=== PATIENT | female | born 1945 | race Caucasian/White ===

== ENCOUNTER 2017-01-16 09:31 | Emergency (ER) | payer MEDICARE, BC ==
--- NOTE | 2017-01-16 09:54 | EDM.PDOC ---
ED HPI GENERAL MEDICAL PROBLEM - General Chief Complaint: Cardiovascular Problem Stated Complaint: [id number] PULSE IRREGULAR SHAKING Time Seen by Provider: 01/16/17 09:46 Source of Information: Reports: Patient History Limitations: Reports: No Limitations - History of Present Illness INITIAL COMMENTS - FREE TEXT/NARRATIVE: 71 yo white female c/o heart palpitations for last 10 days after changing medication from Prilosec to Pepcid. Pt. states it occurs 2-3 times each day for 30 mins. w/o chest pain. Onset Date: 01/06/17 Onset Time: 13:00 Duration: Day(s): Location: Reports: Chest Severity: Moderate Improves with: Reports: None Worsens with: Reports: None Context: Reports: Other (medication change) Associated Symptoms: Reports: No Other Symptoms - Related Data Allergies Allergy/AdvReac Type Severity Reaction Status Date / Time No Known Drug Allergies Allergy Cannot Verified 01/16/17 09:40 Remember Home Meds: Home Meds Famotidine [Pepcid] 20 mg PO BID 01/16/17 [History] ED ROS GENERAL - Review of Systems Review Of Systems: See Below Constitutional: Reports: No Symptoms HEENT: Reports: No Symptoms Respiratory: Reports: No Symptoms Cardiovascular: Reports: Palpitations Endocrine: Reports: No Symptoms GI/Abdominal: Reports: No Symptoms : Reports: No Symptoms Musculoskeletal: Reports: No Symptoms Skin: Reports: No Symptoms Neurological: Reports: No Symptoms Psychiatric: Reports: No Symptoms Hematologic/Lymphatic: Reports: No Symptoms Immunologic: Reports: No Symptoms ED EXAM, GENERAL - Physical Exam Exam: See Below Exam Limited By: No Limitations General Appearance: Alert, WD/WN, No Apparent Distress Eye Exam: Bilateral Eye: PERRL Ears: Normal External Exam Nose: Normal Inspection Throat/Mouth: Normal Inspection Head: Atraumatic Neck: Normal Inspection Respiratory/Chest: No Respiratory Distress Cardiovascular: Normal Peripheral Pulses, Regular Rate, Rhythm Peripheral Pulses: 2+: Radial (L), Radial (R) Back Exam: Normal Inspection Extremities: Normal Inspection, Normal Range of Motion Neurological: Alert, Oriented, CN II-XII Intact Psychiatric: Normal Affect Skin Exam: Warm, Dry, Intact Lymphatic: No Adenopathy Course - Vital Signs Last Recorded V/S: Last Vital Signs Temp 37.0 C 01/16/17 09:44 Pulse 76 01/16/17 09:44 Resp BP 154/76 H 01/16/17 09:44 Pulse Ox 100 01/16/17 09:44 - Orders/Labs/Meds Orders: Active Orders 24 hr Category Date Time Status EKG Documentation Completion [RC] STAT Care 01/16/17 09:48 Active Sodium Chloride 0.9% [Normal Saline] 1,000 ml Med 01/16/17 10:00 Active IV ASDIRECTED Medication Orders Sodium Chloride (Normal Saline) 1,000 mls @ 125 mls/hr IV ASDIRECTED NERI Last Admin: 01/16/17 10:03 Dose: 125 mls/hr Labs: Laboratory Tests 01/16/17 01/16/17 01/16/17 Range/Units 09:58 09:58 09:58 WBC 8.3 (5.0-10.0) 10^3/uL RBC 4.18 L (4.2-5.4) 10^6/uL Hgb 13.2 (12.0-16.0) g/dL Hct 40.3 (37.0-47.0) % MCV 96.4 (80-100) fL MCH 31.6 (27.0-34.0) pg MCHC 32.8 L (33.0-35.0) g/dL Plt Count 224 (150-450) 10^3/uL Neut % (Auto) 60.7 (42.2-75.2) % Lymph % (Auto) 25.7 (20.5-50.1) % [place] % (Auto) 10.7 H (2-8) % Eos % (Auto) 2.5 (1.0-3.0) % Baso % (Auto) 0.4 (0.0-1.0) % D-Dimer, Quantitative < 100 (0-400) ng/mL Sodium 137 (135-145) mmol/L Potassium 3.8 (3.6-5.0) mmol/L Chloride 98 L (101-111) mmol/L Carbon Dioxide 28.0 (21.0-31.0) mmol/L Anion Gap 14.8 BUN 24 H (7-18) mg/dL Creatinine 0.9 (0.6-1.3) mg/dL Est Cr Clr Drug Dosing 43.09 mL/min Estimated GFR (MDRD) > 60 BUN/Creatinine Ratio 26.66 Glucose 102 (74-105) mg/dL Calcium 9.4 (8.4-10.2) mg/dl Magnesium (1.8-2.5) mg/dL Total Bilirubin 0.7 (0.2-1.0) mg/dL AST 31 (10-42) IU/L ALT 23 (10-60) IU/L Alkaline Phosphatase 49 (42-121) IU/L Troponin I 0.02 (0.00-0.02) ng/ml Total Protein 6.5 L (6.7-8.2) g/dl Albumin 4.0 (3.2-5.5) g/dl Globulin 2.5 Albumin/Globulin Ratio 1.60 TSH, Ultra Sensitive (0.45-5.33) uIu/mL 01/16/17 01/16/17 Range/Units 09:58 09:58 WBC (5.0-10.0) 10^3/uL RBC (4.2-5.4) 10^6/uL Hgb (12.0-16.0) g/dL Hct (37.0-47.0) % MCV (80-100) fL MCH (27.0-34.0) pg MCHC (33.0-35.0) g/dL Plt Count (150-450) 10^3/uL Neut % (Auto) (42.2-75.2) % Lymph % (Auto) (20.5-50.1) % [place] % (Auto) (2-8) % Eos % (Auto) (1.0-3.0) % Baso % (Auto) (0.0-1.0) % D-Dimer, Quantitative (0-400) ng/mL Sodium (135-145) mmol/L Potassium (3.6-5.0) mmol/L Chloride (101-111) mmol/L Carbon Dioxide (21.0-31.0) mmol/L Anion Gap BUN (7-18) mg/dL Creatinine (0.6-1.3) mg/dL Est Cr Clr Drug Dosing mL/min Estimated GFR (MDRD) BUN/Creatinine Ratio Glucose (74-105) mg/dL Calcium (8.4-10.2) mg/dl Magnesium 2.0 (1.8-2.5) mg/dL Total Bilirubin (0.2-1.0) mg/dL AST (10-42) IU/L ALT (10-60) IU/L Alkaline Phosphatase (42-121) IU/L Troponin I (0.00-0.02) ng/ml Total Protein (6.7-8.2) g/dl Albumin (3.2-5.5) g/dl Globulin Albumin/Globulin Ratio TSH, Ultra Sensitive 4.80 (0.45-5.33) uIu/mL Meds: Medications Generic Name Dose Route Start Last Admin Trade Name Freq PRN Reason Stop Dose Admin Sodium Chloride 1,000 mls @ 125 mls/hr 01/16/17 10:00 01/16/17 10:03 Normal Saline IV 125 mls/hr ASDIRECTED NERI Administration Departure - Departure Time of Disposition: 10:52 Disposition: Home, Self-Care 01 Condition: Good Clinical Impression: Palpitations Forms: ED Department Discharge Additional Instructions: Stop taking PEPCID F/U w/ PCP for re-evaluation - My Orders Last 24 Hours: My Active Orders 01/16/17 09:48 EKG Documentation Completion [RC] STAT 01/16/17 10:00 Sodium Chloride 0.9% [Normal Saline] 1,000 ml IV ASDIRECTED - Assessment/Plan Last 24 Hours: My Active Orders 01/16/17 09:48 EKG Documentation Completion [RC] STAT 01/16/17 10:00 Sodium Chloride 0.9% [Normal Saline] 1,000 ml IV ASDIRECTED
[2017-01-16] MEDS ORDERED: Sodium Chloride 0.9% 1,000 ML IV SCH (10:00)
[2017-01-16 10:32] LABS: CHLORIDE,CL 98 mmol/L (101-111); SODIUM,NA 137 mmol/L (135-145)
--- NOTE | 2017-01-16 10:36 | CR ---
Clinical history: 71-year-old female with heart "palpitations". Interpretation: No acute cardiopulmonary abnormality. Normal cardiac silhouette without cephalization of vascular flow, signs of alveolar edema or dependen t pleural effusion. Subtle dorsolumbar scoliosis. Asymmetric mild apical pleural scarring on the right. No lung mass, hilar lymphadenopathy or focal lobar pneumonia. No atelectasis/collapse. No pneumothora x.
--- NOTE | 2017-01-17 09:33 | EKG ---
01/16/2017 - ZAFAR PATRICK I reviewed the EKG and agree with the machine's reading. [facility] /[id number]
== END 2017-01-16 11:36 | disposition home or self-care (01) ==
LOC: DL.ED 09:31
DX: R00.2 Palpitations (principal)
CPT/HCPCS: 36415; 71020; 80053; 83735; 84443; 84484; 85025; 85379; 93005; 93010; 96360; 99285; J7030

== ENCOUNTER 2020-08-03 14:54 | Emergency (ER) | payer MEDICARE, BC ==
--- NOTE | 2020-08-03 15:29 | EDM.PDOC ---
ED HPI GENERAL MEDICAL PROBLEM - General Chief Complaint: Respiratory Problem Stated Complaint: DIZZINESS / SHORTNESS OF BREATH Time Seen by Provider: 08/03/20 15:45 Source of Information: Reports: Patient History Limitations: Reports: No Limitations - History of Present Illness INITIAL COMMENTS - FREE TEXT/NARRATIVE: This 75 yo female patient was brought to the ED by her friend due to an episode of increased shortness of breath. The patient reports she was running up stairs at about 1330 today when she noticed that she was having increased shortness of breath. The patient reports her shortness of breath lasted for a while, but eventually resolved. The patient reports she did have a change in her Parkinson's medications about 1 week ago and has been having increased dif ficulties sleeping over the past 3 nights. The patient reports she has been waking up in the middle of the night, but she is not too sure if she is waking up due to PAC (which she has a history of) or due to the tremors from Parkinson's. Onset Date: 08/03/20 Onset Time: 13:30 Duration: Resolved Prior to Arrival Location: Reports: Generalized Quality: Reports: Other Severity: Moderate Improves with: Reports: None Worsens with: Reports: None Context: Reports: Other Associated Symptoms: Reports: Shortness of Breath - Related Data Allergies Allergy/AdvReac Type Severity Reaction Status Date / Time No Known Drug Allergies Allergy Cannot Verified 01/16/17 09:40 Remember Home Meds: Home Meds Famotidine [Pepcid] 20 mg PO BID 01/16/17 [History] Past Medical History Gastrointestinal History: Reports: GERD Musculoskeletal History: Reports: Other (See Below) Other Musculoskeletal History: Osteopenia Neurological History: Reports: Parkinson's - Past Surgical History GI Surgical History: Reports: Appendectomy Female Surgical History: Reports: Breast Biopsy, Hysterectomy, Oophorectomy Social & Family History - Family History Family Medical History: No Pertinent Family History - Caffeine Use Caffeine Use: Reports: Coffee ED ROS GENERAL - Review of Systems Review Of Systems: Comprehensive ROS is negative, except as noted in HPI. ED EXAM, GENERAL - Physical Exam Exam: See Below Exam Limited By: No Limitations General Appearance: Alert, WD/WN, Mild Distress Eye Exam: Bilateral Eye: EOMI, Normal Inspection, PERRL Ears: Normal External Exam, Normal Canal, Hearing Grossly Normal, Normal TMs Nose: Normal Inspection, Normal Mucosa, No Blood Throat/Mouth: Normal Inspection, Normal Lips, Normal Teeth, Normal Gums, Normal Oropharynx, Normal Voice, No Airway Compromise Head: Atraumatic, Normocephalic Neck: Normal Inspection, Supple, Non-Tender, Full Range of Motion Respiratory/Chest: No Respiratory Distress, Lungs Clear, Normal Breath Sounds, No Accessory Muscle Use, Chest Non-Tender Cardiovascular: No Edema, No Gallop, No JVD, No Murmur, No Rub, Extra Beats GI/Abdominal: Normal Bowel Sounds, Soft, Non-Tender, No Organomegaly, No Distention, No Abnormal Bruit, No Mass (Female) Exam: Deferred Rectal (Female) Exam: Deferred Back Exam: Normal Inspection, Full Range of Motion, NT Extremities: Normal Inspection, Normal Range of Motion, Non-Tender, Normal Capillary Refill, No Pedal Edema Neurological: Alert, Oriented, CN II-XII Intact, Normal Cognition, Normal Gait, Normal Reflexes, No Motor/Sensory Deficits Psychiatric: Normal Affect, Normal Mood Skin Exam: Warm, Dry, Intact, Normal Color, No Rash Lymphatic: No Adenopathy #1 Interpretation EKG Date: 08/03/20 Time: 15:19 Rhythm: NSR Rate (Beats/Min): 61 (intermittent PAC) [place]: Normal P-Wave: Present QRS: Normal ST-T: Normal QT: Normal Comparison: NA - No Prior EKG Course - Vital Signs Last Recorded V/S: Last Vital Signs Temp 36.7 C 08/03/20 15:17 Pulse 78 08/03/20 15:17 Resp 18 08/03/20 15:17 BP 127/72 08/03/20 15:17 Pulse Ox 99 08/03/20 15:17 - Orders/Labs/Meds Orders: Active Orders 24 hr Category Date Time Status EKG Documentation Completion [RC] STAT Care 08/03/20 15:13 Active Labs: Laboratory Tests 08/03/20 08/03/20 08/03/20 Range/Units 15:20 15:20 15:20 WBC 4.6 L (5.0-10.0) 10^3/uL RBC 4.07 L (4.2-5.4) 10^6/uL Hgb 12.9 (12.0-16.0) g/dL Hct 39.9 (37.0-47.0) % MCV 98.0 (80-100) fL MCH 31.7 (27.0-34.0) pg MCHC 32.3 L (33.0-35.0) g/dL Plt Count 202 (150-450) 10^3/uL Neut % (Auto) 71.9 (42.2-75.2) % Lymph % (Auto) 17.1 L (20.5-50.1) % [place] % (Auto) 10.6 H (2-8) % Eos % (Auto) 0.2 L (1.0-3.0) % Baso % (Auto) 0.2 (0.0-1.0) % Sodium 139 (136-145) mmol/L Potassium 4.0 (3.5-5.1) mmol/L Chloride 102 (98-107) mmol/L Carbon Dioxide 32 (21-32) mmol/L Anion Gap 9.0 (7-13) mEq/L BUN 19 H (7-18) mg/dL Creatinine 0.97 (0.55-1.02) mg/dL Est Cr Clr Drug Dosing 34.47 mL/min Estimated GFR (MDRD) 56 BUN/Creatinine Ratio 19.6 (No establ ref range) Glucose 91 (70-99) mg/dL Lactic Acid 0.7 (0.4-2.0) mmol/L Calcium 8.7 (8.5-10.1) mg/dL Total Bilirubin 0.5 (0.2-1.0) mg/dL AST 24 (15-37) U/L ALT 12 L (14-59) U/L Alkaline Phosphatase 59 (46-116) U/L Troponin I < 0.017 (0.000-0.056) ng/mL Total Protein 6.5 (6.4-8.2) g/dL Albumin 3.6 (3.4-5.0) g/dL Globulin 2.9 Albumin/Globulin Ratio 1.2 Departure - Departure Time of Disposition: 17:06 Disposition: Home, Self-Care 01 Condition: Fair Clinical Impression: Palpitations - Discharge Information *PRESCRIPTION DRUG MONITORING PROGRAM REVIEWED*: Not Applicable *COPY OF PRESCRIPTION DRUG MONITORING REPORT IN PATIENT LATRELL: Not Applicable Forms: ED Department Discharge Care Plan Goals: The patient was advised of the examination, lab, EKG and x-ray results during the visit. The patient was encouraged to continue to monitor her symptoms. If the patient has any additional symptoms or concerns, the patient should either return to the emergency department or visit her primary care facility. Sepsis Event Note (ED) - Focused Exam Vital Signs: Vital Signs Temp Pulse Resp BP Pulse Ox 08/03/20 15:17 36.7 C 78 18 127/72 99 - My Orders Last 24 Hours: My Active Orders 08/03/20 15:13 EKG Documentation Completion [RC] STAT - Assessment/Plan Last 24 Hours: My Active Orders 08/03/20 15:13 EKG Documentation Completion [RC] STAT
[2020-08-03 15:47] LABS: CHLORIDE,CL 102 mmol/L (98-107); SODIUM,NA 139 mmol/L (136-145)
--- NOTE | 2020-08-03 17:02 | CR ---
EXAMINATION: Chest 1V Frontal SEX: Female AGE: 75 years CLINICAL HISTORY: 75-year-old female complaining of shortness of breath. Comparison CXR 16 January 2017. Interpretation: Generalized air trapping. Symmetrically prominent nipple shadows. External air sampling and monitoring leads. No heart failure i.e. no cardiomegaly, pulmonary vascular congestion, alveolar edema or dependent pleural effusion. No new lung mass or hilar lymphadenopathy since December 2016. No alveolar infiltrate, atelectasis/collapse, or peripheral "groundglass" interstitial lung densities. No pneumothorax or pneumomediastinum. Midline tracheal airway unremarkable. CONCLUSION: No acute cardiopulmonary abnormality.
== END 2020-08-03 17:25 | disposition home or self-care (01) ==
LOC: DL.ED 14:54
DX: R00.2 Palpitations (principal); K21.9 Gastro-esophageal reflux disease without esophagitis; Z79.899 Other long term (current) drug therapy
CPT/HCPCS: 36415; 71045; 80053; 83605; 84484; 85025; 93005; 93010; 99284; 99285-25

== ENCOUNTER 2020-08-10 13:28 | Emergency (ER) | payer MEDICARE, BC ==
--- NOTE | 2020-08-10 14:18 | EDM.PDOC ---
ED HPI GENERAL MEDICAL PROBLEM - General Stated Complaint: SHORTNESS OF BREATH / SHAKEY Time Seen by Provider: 08/10/20 13:55 Source of Information: Reports: Patient, Old Records, RN, RN Notes Reviewed History Limitations: Reports: No Limitations - History of Present Illness INITIAL COMMENTS - FREE TEXT/NARRATIVE: Priyanka is a 75 yo female who presents to the ED via personal vehicle with complaints of shortness of breath and palpitations. The patient reports she was evaluated in this facility one week ago for feelings of "...heart fluttering" and was subsequently diagnosed with frequent PACs. She has been placed on a Ziopatch and is due to meet with MILADIS Mcarthur at [facility] in [facility] on August 21. She presents today stating she experienced two bouts of shortness of breath and grew concerned the arrhythmia was straining her heart. She denies recent illness, fever, shaking chills, chest pain, chest pressure, cough, sore throat, vomiting, or diarrhea. She does attest to restless sleep over the past few nights and intermittent nausea at night. She denies tobacco, alcohol, or recreational drug use. - Related Data Allergies Allergy/AdvReac Type Severity Reaction Status Date / Time No Known Drug Allergies Allergy Cannot Verified 08/10/20 13:45 Remember Home Meds: Home Meds Famotidine [Pepcid] 20 mg PO BID 01/16/17 [History] Past Medical History HEENT History: Reports: Impaired Vision Cardiovascular History: Reports: Other (See Below) Other Cardiovascular History: PACs Respiratory History: Reports: None Gastrointestinal History: Reports: GERD [employer] History: Reports: None Musculoskeletal History: Reports: Other (See Below) Other Musculoskeletal History: Osteopenia Neurological History: Reports: Parkinson's Psychiatric History: Reports: None Endocrine/Metabolic History: Reports: None Hematologic History: Reports: None Immunologic History: Reports: None Oncologic (Cancer) History: Reports: None Dermatologic History: Reports: None - Infectious Disease History Infectious Disease History: Reports: None - Past Surgical History Head Surgeries/Procedures: Reports: None GI Surgical History: Reports: Appendectomy Female Surgical History: Reports: Breast Biopsy, Hysterectomy, Oophorectomy Social & Family History - Family History Family Medical History: No Pertinent Family History - Tobacco Use Tobacco Use Status *Q: Never Tobacco User - Caffeine Use Caffeine Use: Reports: None - Recreational Drug Use Recreational Drug Use: No ED ROS GENERAL - Review of Systems Review Of Systems: Comprehensive ROS is negative, except as noted in HPI. ED EXAM, GENERAL - Physical Exam Exam: See Below Exam Limited By: No Limitations General Appearance: Alert, No Apparent Distress Ears: Normal External Exam, Normal Canal, Hearing Grossly Normal, Normal TMs Ear Exam: Bilateral Ear: Auricle Normal, Canal Normal, TM normal Nose: Normal Inspection, Normal Mucosa, No Blood Throat/Mouth: Normal Lips, Normal Teeth, Normal Gums, Normal Voice, No Airway Compromise. No: Normal Oropharynx (Dry mucous membranes) Head: Atraumatic, Normocephalic Neck: Normal Inspection, Supple, Non-Tender, Full Range of Motion. No: Lymphadenopathy (L), Lymphadenopathy (R) Respiratory/Chest: No Respiratory Distress, Lungs Clear, Normal Breath Sounds, No Accessory Muscle Use, Chest Non-Tender Cardiovascular: Regular Rate, Rhythm, No Edema, No Gallop, No JVD, No Murmur, No Rub, Extra Beats (Frequent PACs) Peripheral Pulses: 2+: Radial (L), Radial (R) GI/Abdominal: Normal Bowel Sounds, Soft, Non-Tender, No Distention, No Mass, Pelvis Stable (Female) Exam: Deferred Rectal (Female) Exam: Deferred Back Exam: Normal Inspection, Full Range of Motion Extremities: Normal Inspection, Normal Range of Motion, Non-Tender, No Pedal Edema, Normal Capillary Refill Neurological: Alert, Oriented, CN II-XII Intact, Normal Cognition, Normal Gait, No Motor/Sensory Deficits Psychiatric: Normal Affect, Normal Mood Skin Exam: Warm, Dry, Intact, Normal Color, No Rash. No: Ecchymosis, Erythema, Jaundice, Mottled, Pallor, Petechiae #1 Interpretation EKG Date: 08/10/20 Time: 14:34 Rhythm: NSR (with PACs) Rate (Beats/Min): 78 [place]: Normal P-Wave: Present QRS: Normal ST-T: Normal QT: Normal [place]/PQ Interval: 0.168 Comparison: No Change EKG Interpretation Comments: NSR with PACs; No evidence of acute myocardial ischemia Course - Vital Signs Last Recorded V/S: Last Vital Signs Temp 98.1 F 08/10/20 13:46 Pulse 76 08/10/20 13:46 Resp 18 08/10/20 13:46 BP 99/72 08/10/20 13:46 Pulse Ox 99 08/10/20 13:46 - Orders/Labs/Meds Orders: Active Orders 24 hr Category Date Time Status EKG Documentation Completion [RC] STAT Care 08/10/20 14:18 Active Labs: Laboratory Tests 08/10/20 08/10/20 08/10/20 Range/Units 14:10 14:27 14:27 WBC 5.5 (5.0-10.0) 10^3/uL RBC 4.33 (4.2-5.4) 10^6/uL Hgb 13.8 (12.0-16.0) g/dL Hct 42.5 (37.0-47.0) % MCV 98.2 (80-100) fL MCH 31.9 (27.0-34.0) pg MCHC 32.5 L (33.0-35.0) g/dL Plt Count 224 (150-450) 10^3/uL Neut % (Auto) 75.3 H (42.2-75.2) % Lymph % (Auto) 15.8 L (20.5-50.1) % [place] % (Auto) 8.3 H (2-8) % Eos % (Auto) 0.4 L (1.0-3.0) % Baso % (Auto) 0.2 (0.0-1.0) % Sodium 140 (136-145) mmol/L Potassium 4.2 (3.5-5.1) mmol/L Chloride 103 (98-107) mmol/L Carbon Dioxide 30 (21-32) mmol/L Anion Gap 11.2 (7-13) mEq/L BUN 24 H (7-18) mg/dL Creatinine 0.88 (0.55-1.02) mg/dL Est Cr Clr Drug Dosing 36.69 mL/min Estimated GFR (MDRD) > 60 BUN/Creatinine Ratio 27.3 (No establ ref range) Glucose 136 H (70-99) mg/dL Calcium 9.0 (8.5-10.1) mg/dL Total Bilirubin 0.4 (0.2-1.0) mg/dL AST 22 (15-37) U/L ALT 26 (14-59) U/L Alkaline Phosphatase 67 (46-116) U/L Troponin I < 0.017 (0.000-0.056) ng/mL Total Protein 6.5 (6.4-8.2) g/dL Albumin 3.5 (3.4-5.0) g/dL Globulin 3.0 Albumin/Globulin Ratio 1.2 Urine Color Yellow (YELLOW) Urine Appearance Slightly cloudy (CLEAR) Urine pH 7.0 (5.0-9.0) Ur Specific [place] 1.015 (1.005-1.030) Urine Protein Negative (NEGATIVE) Urine Glucose (UA) Negative (NEGATIVE) Urine Ketones Negative (NEGATIVE) Urine Occult Blood Trace-intact H (NEGATIVE) Urine Nitrite Negative (NEGATIVE) Urine Bilirubin Negative (NEGATIVE) Urine Urobilinogen 0.2 (0.2-1.0) mg/dL Ur Leukocyte Esterase Negative (NEGATIVE) Urine RBC 0-5 /HPF Urine WBC 0-5 (0-5/HPF) /HPF Ur Epithelial Cells Few (NOT SEEN) /HPF - Re-Assessments/Exams Free Text/Narrative Re-Assessment/Exam: 08/10/20 EKG reveals NSR with PACs, no evidence of acute myocardial ischemia. CBC unremarkable for acute processes. Kidney function, liver function, and electrolytes appropriate via CMP. Troponin WNL. CXR not performed as Xray from 08/03/20 unremarkable and patient denies fever, shaking chills, chest pain, or persistent shortness of breath. Discussed findings of examination and lab work with patient. Discussed following up with EP regarding today's visit; reiterated type of arrhythmia which is not causing strain on her heart or organ systems. Patient verbalized understanding and agreement with the plan of care. Departure - Departure Time of Disposition: 15:21 Disposition: Home, Self-Care 01 Condition: Good Clinical Impression: Premature atrial beat, Shortness of breath, Fluttering sensation of heart Instructions: Premature Atrial Contraction, Palpitations, [id number] Additional Instructions: 1.) Keep previously scheduled appointment with Dr. Cotter; you may follow up with his office regarding today's visit for further guidance. 2.) Drink plenty of water to stay hydrated. 3.) You may try an [id number] sleep aid, or increase or melatonin, to assist with sleep at night while you are waiting for this upcoming appointment. 4.) Return to the emergency department with any chest pain, chest pressure, or persistent shortness of breath that does not alleviate. Sepsis Event Note (ED) - Evaluation Sepsis Screening Result: No Definite Risk - Focused Exam Vital Signs: Vital Signs Temp Pulse Resp BP Pulse Ox 08/10/20 13:46 98.1 F 76 18 99/72 99 - My Orders Last 24 Hours: My Active Orders 08/10/20 14:18 EKG Documentation Completion [RC] STAT - Assessment/Plan Last 24 Hours: My Active Orders 08/10/20 14:18 EKG Documentation Completion [RC] STAT
[2020-08-10 14:56] LABS: ANION GAP 11.2 mEq/L (7-13); CHLORIDE,CL 103 mmol/L (98-107); SODIUM,NA 140 mmol/L (136-145)
== END 2020-08-10 15:41 | disposition home or self-care (01) ==
LOC: DL.ED 13:28
DX: I48.92 Unspecified atrial flutter (principal); I49.1 Atrial premature depolarization
CPT/HCPCS: 36415; 80053; 81001; 84484; 85025; 93010; 99284; 99285-25

== ENCOUNTER 2020-09-09 12:26 | Emergency (ER) | payer MEDICARE, BC ==
[2020-09-09] MEDS ORDERED: Lidocaine 1% 30 ML SDV INJECT ONE (12:55)
[2020-09-09] MEDS ORDERED: Diphtheria,Pertussis(Acell),Tetanus Vaccine 0.5 ML Syringe IM ONE (12:55)
--- NOTE | 2020-09-09 12:55 | EDM.PDOC ---
ED HPI GENERAL MEDICAL PROBLEM - General Chief Complaint: ENT Problem Stated Complaint: SENT FROM [facility] Time Seen by Provider: 09/09/20 12:50 Source of Information: Reports: Patient History Limitations: Reports: No Limitations - History of Present Illness INITIAL COMMENTS - FREE TEXT/NARRATIVE: Patient [facility] evaluation of a laceration to the right ear and scalp. This morning the patient was working outside when she tripped and fell landing on her ground striking her head on the corner of a gate keeper stone. She did not get knocked out. She sustained a laceration to her right ear as well as her scalp. She went to the clinic to be evaluated and she was sent to the ER for repair of her lacerations. Her tetanus immunization is up-to-date. She denies any headache visual acuity changes nausea diplopia or neck pain. She has no paresthesias of her upper or lower extremities. No change in functionality of her upper or lower extremities. This was a mechanical fall. She was not weak dizzy lightheaded prior to her fall. She sustained no other injuries other than to her right ear and scalp. She is on aspirin daily but she is not on any anticoagulation. She does have a history of Parkinson's and is not uncommon for her to fall. 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 Musculoskeletal History: Reports: Other (See Below) Other Musculoskeletal History: Osteopenia Neurological History: Reports: Parkinson's Psychiatric History: Reports: None Endocrine/Metabolic History: Reports: None Hematologic History: Reports: None Immunologic History: Reports: None Oncologic (Cancer) History: Reports: None Dermatologic History: Reports: None - Infectious Disease History Infectious Disease History: Reports: None - Past Surgical History Head Surgeries/Procedures: Reports: None GI Surgical History: Reports: Appendectomy Female Surgical History: Reports: Breast Biopsy, Hysterectomy, Oophorectomy Social & Family History - Family History Family Medical History: No Pertinent Family History - Caffeine Use Caffeine Use: Reports: None ED ROS ENT - Review of Systems Review Of Systems: Comprehensive ROS is negative, except as noted in HPI. ED EXAM, ENT - Physical Exam Exam: See Below Exam Limited By: No Limitations General Appearance: Alert, WD/WN, No Apparent Distress Eye Exam: Bilateral Eye: EOMI, Normal Inspection, PERRL Ears: Normal Canal, Normal TMs. No: Normal External Exam (On the right posterior superior aspect of the right pinna there is a 3 cm laceration top to bottom that does not include the cartilage. The cartilage does not appear to be injured. On the anterior aspect of the same area of the pinna there is a very small superficial laceration. Not into cartilag) Nose: Normal Inspection, Normal Mucousa Mouth/Throat: Normal Inspection, Normal Gums, Normal Teeth Head: Normocephalic, Scalp Lacerations (Over the right mastoid process there is a 3 cm superficial lacerations. There is no bony deformity crepitus subcutaneous emphysema swelling or hematoma. Rest of the scalp is atraumatic) Neck: Normal Inspection, Supple, Non-Tender. No: Tender Lateral, Tender Midline Respiratory/Chest: No Respiratory Distress, Lungs Clear, Normal Breath Sounds, No Accessory Muscle Use, Chest Non-Tender Cardiovascular: Normal Peripheral Pulses, Regular Rate, Rhythm GI/Abdominal: Normal Bowel Sounds, Soft, Non-Tender (Female) Exam: Deferred Rectal (Female) Exam: Deferred Back: Normal Inspection, Full Range of Motion Extremities: Normal Inspection, Normal Range of Motion, No Pedal Edema, Normal Capillary Refill Neurological: Alert, Oriented, CN II-XII Intact, Normal Cognition, Normal Gait, Normal Reflexes, No Motor/Sensory Deficits ED ENT PROCEDURES - Laceration/Wound Repair Right Posterior Ear Lac/wound length in cm: 3.5 Appearance: Subcutaneous, Linear, Clean Distal NVT: Neuro & Vascular Intact Anesthetic Type: Local Local Anesthesia - Lidocaine (Xylocaine): 1% Plain Local Anesthesia - Bupivicaine (Marcaine): 0.5% Plain Local Anesthetic Volume: 3cc Skin Prep: Chlorhexidine (Hibiciens), Saline Saline irrigation (cc's): 50 Exploration/Debridement/Repair: Wound Explored, In a Bloodless Field, Explored to Base Suture Size: 5-0 # of Sutures: 1 Suture Type: Running Sterile Dressing Applied: Nurse Tetanus Status Addressed: Yes Complications: None Right Lateral Other Lac/wound length in cm: 3 Appearance: Subcutaneous, Linear Distal NVT: Neuro & Vascular Intact Anesthetic Type: Local Local Anesthesia - Lidocaine (Xylocaine): 1% Plain Local Anesthesia - Bupivicaine (Marcaine): 0.5% Plain Local Anesthetic Volume: 3cc Skin Prep: Chlorhexidine (Hibiciens), Saline Exploration/Debridement/Repair: Wound Explored, In a Bloodless Field, Explored to Base Suture Size: 5-0 # of Sutures: 4 Suture Type: Nylon, Interrupted Left Anterior Ear Lac/wound length in cm: 0.5 Appearance: Superficial, Clean Distal NVT: Neuro & Vascular Intact Skin Prep: Chlorhexidine (Hibiciens), Saline Suture Size: Other (Dermabond) Course - Vital Signs Last Recorded V/S: Last Vital Signs Temp 97.6 F 09/09/20 13:02 Pulse 75 09/09/20 13:02 Resp 20 09/09/20 13:02 BP 152/87 H 09/09/20 13:02 Pulse Ox 98 09/09/20 13:02 - Orders/Labs/Meds Meds: Medications Discontinued Medications Generic Name Dose Route Start Last Admin Trade Name Freq PRN Reason Stop Dose Admin Bupivacaine HCl 30 ml 09/09/20 13:13 09/09/20 13:57 Bupivacaine 0.5% 30 Ml Sdv INJECT 09/09/20 13:14 30 ml ONETIME ONE Administration Cephalexin 500 mg 09/09/20 14:34 09/09/20 14:44 Cephalexin 500 Mg Cap PO 09/09/20 14:35 500 mg ONETIME ONE Administration Diphtheria/Tetanus/Acell Pertussis 0.5 ml 09/09/20 12:55 09/09/20 13:17 Diphtheria,Pertussis(Acell),Tetanus Vaccine 0.5 Ml Syringe IM 09/09/20 12:56 0.5 ml .ONCE ONE Administration Lidocaine HCl 30 ml 09/09/20 12:55 09/09/20 13:17 Lidocaine 1% 30 Ml Sdv INJECT 09/09/20 12:56 30 ml ONETIME ONE Administration - Re-Assessments/Exams Free Text/Narrative Re-Assessment/Exam: Repeat neuro exam after the suture repair unchanged. Departure - Departure Time of Disposition: 14:32 Disposition: Home, Self-Care 01 Clinical Impression: Laceration of ear, right, simple Qualifiers: Encounter type: initial encounter Qualified Code(s): S01.311A - Laceration without foreign body of right ear, initial encounter Laceration of scalp Qualifiers: Encounter type: initial encounter Qualified Code(s): S01.01XA - Laceration without foreign body of scalp, initial encounter - Discharge Information Instructions: Laceration Care, Adult, [id number] Forms: ED Department Discharge Additional Instructions: Cleanse the area of the lacerations twice daily with soap and water. Bacitracin and bandage until healed. Sutures out in 7 days. Running water over the laceration is okay no soaking in the water. Watch for signs of infection. Cephalexin 1 capsule 4 times a day for the next 5 days. First dose given in the ED and RX given to the patient. #20. Return to the ED if new or worsening symptoms. Follow up in PCP for suture removal or if any concerns.
[2020-09-09] MEDS ORDERED: Bupivacaine 0.5% 30 ML SDV INJECT ONE (13:13)
[2020-09-09] MEDS ORDERED: Cephalexin 500 MG Cap PO ONE (14:34)
== END 2020-09-09 14:53 | disposition home or self-care (01) ==
LOC: DL.ED 12:26
DX: S01.311A Laceration without foreign body of right ear, initial encounter (principal); S01.01XA Laceration without foreign body of scalp, initial encounter; K21.9 Gastro-esophageal reflux disease without esophagitis; G20 Parkinson's disease; Z23 Encounter for immunization; W01.10XA Fall on same level from slipping, tripping and stumbling with subsequent striking against unspecified object, initial encounter
CPT/HCPCS: 12001; 12002; 12013; 90471; 90715; 99282; 99283; A9270; J3490

== ENCOUNTER 2023-05-10 10:49 | Emergency (ER) | payer MEDICARE, BC | END 2023-05-10 12:51 | disposition home or self-care (01) | LOC: DL.ED 10:49 | DX: S61.216A Laceration without foreign body of right little finger without damage to nail, initial encounter (principal); S61.214A Laceration without foreign body of right ring finger without damage to nail, initial encounter; S60.051A Contusion of right little finger without damage to nail, initial encounter; S60.041A Contusion of right ring finger without damage to nail, initial encounter; Z79.899 Other long term (current) drug therapy; Z90.49 Acquired absence of other specified parts of digestive tract; Z90.710 Acquired absence of both cervix and uterus; W01.0XXA Fall on same level from slipping, tripping and stumbling without subsequent striking against object, initial encounter | CPT/HCPCS: 73130-RT; 99283 ==

== ENCOUNTER 2024-10-22 11:37 | Emergency (ER) | payer MEDICARE, BC ==
[2024-10-22] MEDS ORDERED: Sodium Chloride 0.9% 10 ML Syringe FLUSH PRN (11:55)
[2024-10-22 12:02] LABS: BASOPHILS PERCENT AUTO 0.4 % (0.0-1.0); EOSINOPHILS PERCENT AUTO 0.4 % (1.0-3.0); LYMPHOCYTES PERCENT AUTO 19.6 % (20.5-50.1); MONOCYTES PERCENT AUTO 11.9 % (2-8); NEUTROPHILS PERCENT AUTO 67.7 % (42.2-75.2); PLATELET COUNT,PLT 259 10^3/uL (150-450); RED BLOOD CELL COUNT 3.88 10^6/uL (4.2-5.4); WHITE BLOOD CELL COUNT,WBC 5.7 10^3/uL (5.0-10.0)
[2024-10-22] MEDS: Iopamidol 755 Mg/ML 100 ML Bottle IVPUSH ONE (12:03)
[2024-10-22 12:14] LABS: INR 0.9 (0.9-1.2); PTT,PARTIAL THROMBOPLSTIN TIME 20.7 SEC (22.0-34.0)
[2024-10-22 12:17] LABS: A/G RATIO 1.4; ALANINE AMINOTRANSFERASE,ALT 9 U/L (14-59); ASPARTATE AMNIOTRANSFERASE,AST 22 U/L (15-37); BILIRUBIN TOTAL 0.4 mg/dL (0.2-1.0); BLOOD UREA NITROGEN,BUN 36 mg/dL (7-18); CARBON DIOXIDE,CO2 33 mmol/L (21-32); CHLORIDE,CL 101 mmol/L (98-107); CREATININE 0.74 mg/dL (0.55-1.02); GLUCOSE RANDOM 90 mg/dL (70-99); POTASSIUM,K 4.2 mmol/L (3.5-5.1); PROTEIN TOTAL,TP 6.3 g/dL (6.4-8.2); SODIUM,NA 140 mmol/L (136-145)
[2024-10-22 12:21] LABS: LACTIC ACID 0.7 mmol/L (0.4-2.0)
[2024-10-22 12:28] LABS: ESTIMATED GFR 83 mL/min (>=60); ETHANOL BLOOD MEDICAL < 3 mg/dL (0)
== END 2024-10-22 13:50 | disposition home or self-care (01) ==
LOC: DL.ED 11:37
DX: G20.B2 Parkinson's disease with dyskinesia, with fluctuations (principal); K21.9 Gastro-esophageal reflux disease without esophagitis; Z90.710 Acquired absence of both cervix and uterus; Z88.8 Allergy status to other drugs, medicaments and biological substances; Z79.899 Other long term (current) drug therapy; Z90.49 Acquired absence of other specified parts of digestive tract
CPT/HCPCS: 36415; 70450; 70496; 70498; 80053; 80307; 82947; 83605; 83735; 85025; 85610; 85730; 86140; 87040; 93005; 93010; 99284; 99285; Q9967